=== PATIENT | male | born 1965 ===

== ENCOUNTER 2018-01-23 18:19 | Emergency (ER) | payer BC ==
[2018-01-23] MEDS ORDERED: Ketorolac Tromethamine 30 MG/ML VIAL ONE (18:45)
[2018-01-23 18:52] LABS: Bilirubin Negative (Negative); Blood, Urine Negative (Negative); Clarity Slightly Cloudy (Clear); Glucose, Urine (Dipstick) Negative (Negative); Leukocyte Negative (Negative); Nitrite Negative (Negative); Protein, Urine (Dipstick) Trace mg/dL (Neg-Trace)
--- NOTE | 2018-01-23 19:15 | CT ---
NONCONTRAST CT OF THE ABDOMEN AND PELVIS: 01/23/18 INDICATION: Left sided flank pain for three weeks. FINDINGS: The lung bases are clear. The unopacified liver, gallbladder, adrenal glands, and spleen are unremarkable appearing. There is a 2 mm calculus within the superior pole of the left kidney. No hydronephrosis is evident. N o ureteral calculus is demonstrated. The bladder is decompressed. There is scattered diverticula involving the colon without evidence of active diverticulitis. There i s a normal appendix in the right lower quadrant. No definite acute osseous abnormality is evident. IMPRESSION: 1. Left nephrolithiasis. No ureteral calculus or hydronephrosis is demonstrated. 2. Colonic diverticulosis. POS: [facility]
== END 2018-01-23 19:29 | disposition home or self-care (01) ==
LOC: SCSER 18:19
DX: M54.5 Low back pain (principal); E78.00 Pure hypercholesterolemia, unspecified; Z79.899 Other long term (current) drug therapy
CPT/HCPCS: 74176; 81003; 96372; J1885